=== PATIENT | male | born 1950 | race Caucasian/White ===

== ENCOUNTER 2017-10-20 19:13 | Emergency (ER) | payer OTHER ==
[~2017-10-20] VITALS: Ht 177.8 cm; Wt 9.1 kg
== END 2017-10-20 21:07 | disposition home or self-care (01) ==
LOC: ER 19:13
DX: R53.81 Other malaise (principal); B20 Human immunodeficiency virus [HIV] disease

== ENCOUNTER → 2017-10-21 | Emergency (ER) | payer OTHER | END | disposition left against medical advice (07) | LOC: ER 13:27 | DX: Z53.20 Procedure and treatment not carried out because of patient's decision for unspecified reasons (principal) ==